=== PATIENT | female | born 1950 | race Caucasian/White ===

== ENCOUNTER 2021-10-07 08:02 | Outpatient (CLI) | payer MEDICARE, OTHER ==
[~2021-10-07] VITALS: Ht 180.3 cm; Wt 104.5 kg
[2021-10-07] MEDS ORDERED: BIOT10006 PO (08:50)
[2021-10-07] MEDS ORDERED: IRON1CAP PO (08:50)
[2021-10-07] MEDS ORDERED: ALBU0.63 IH (08:50)
[2021-10-07] MEDS ORDERED: OXC5T PO (08:50)
[2021-10-07] MEDS ORDERED: IPRA4AER IH (08:50)
[2021-10-07] MEDS ORDERED: ASPI-999 PO (08:50)
[2021-10-07] MEDS ORDERED: GABA300C PO (08:50)
[2021-10-07] MEDS ORDERED: ATOR20TA66 PO (08:50)
[2021-10-07] MEDS ORDERED: OMEP20CA18 PO (08:50)
[2021-10-07] MEDS ORDERED: TR1C15 TP (08:50)
[2021-10-07] MEDS ORDERED: LUTE20CA2 PO (08:50)
[2021-10-07] MEDS ORDERED: DOXY100C5 PO (08:50)
[2021-10-07] MEDS ORDERED: ALLO300T2 PO (08:50)
[2021-10-07] MEDS ORDERED: HYOS-6 PO (08:50)
[2021-10-07] MEDS ORDERED: MELO15TA39 PO (08:50)
[2021-10-07] MEDS ORDERED: CRAN250T2 PO (08:50)
[2021-10-07] MEDS ORDERED: CHOL500050 PO (08:50)
[2021-10-07] MEDS ORDERED: LEVO50CA4 PO (08:50)
[2021-10-07] MEDS ORDERED: AMIO100T4 PO (08:50)
[2021-10-07] MEDS ORDERED: ZOLP10TA PO (08:50)
[2021-10-07] MEDS ORDERED: [UNRECOGNIZED DRUG - CODE] PO (08:50)
[2021-10-07 09:21] VITALS: BP 122/75
== END 2021-10-07 10:20 | disposition home or self-care (01) ==
LOC: PREOP 08:02
PROVIDERS: ATTEND Otolaryngology Otolaryngology/Facial Plastic Surgery
DX: Z01.818 Encounter for other preprocedural examination (principal)

== ENCOUNTER 2021-10-15 05:54 | Day surgery (SDC) | payer MEDICARE, OTHER ==
[2021-10-15] VITALS (11 sets, daily range): BP systolic 125–157; BP diastolic 76–90
[~2021-10-15] VITALS: Ht 180 cm; Wt 104.5 kg
[~2021-10-15 05:54] MED LIST: ALBU0.63 IH; ALLO300T2 PO; AMIO100T4 PO; ASPI-999 PO; ATOR20TA66 PO; BIOT10006 PO; CHOL500050 PO; CRAN250T2 PO; DOXY100C5 PO; GABA300C PO; HYOS-6 PO; IPRA4AER IH; IRON1CAP PO; LEVO50CA4 PO; LUTE20CA2 PO; MELO15TA39 PO; OMEP20CA18 PO; OXC5T PO; TR1C15 TP; ZOLP10TA PO; [UNRECOGNIZED DRUG - CODE] PO
[2021-10-15] MEDS ORDERED: LACTATED RINGERS 1,000 ML IV PRN (06:00)
--- NOTE | 2021-10-15 06:53 | Progress Note-Pre Operative ---
Pre-Operative Progress Note Date of Available H&P: Oct 15, 2021 Date H&P Reviewed: Oct 15, 2021 Time H&P Reviewed: 06:30 History & Physical: H&P Reviewed, Patient Examed, No changes noted Changes from last HP none Pre-Operative Diagnosis: deviated nasal septum, Bialt hyper of Inf turbs HEATHER DALE MD Oct 15, 2021 06:53
[2021-10-15] MEDS ORDERED: LIDOCAINE/EPI 2% 1:200,00 (XYLOCAINE) 20 ML VIAL ONE (06:55)
[2021-10-15] MEDS ORDERED: MUPIROCIN 2% OINT 22 GM (BACTROBAN) TUBE ONE (06:55)
[2021-10-15] MEDS ORDERED: PHENYLEPHRINE 0.5% NASAL SPR (NEO-SYNEPHRINE) REG ONE (06:55)
[2021-10-15] MEDS ORDERED: COCAINE HCL 4% 2 ML SYR ONE (06:55)
--- NOTE | 2021-10-15 06:59 | Progress Note-Post Operative ---
Post-Operative Progess Note Surgeon (s)/Rubbish Collector (s) Surgeon HEATHER DALE MD Rubbish Collector n/a Pre-Operative Diagnosis deviated nasal septum, Bialt hyper of Inf turbs Post-Operative Diagnosis same Post-Op Procedure Note Date of Procedure: Oct 15, 2021 Name of Procedure Performed: Nasal Septoplasty, Bilateral Reduction of the INferior Turbinates Description & Findings Description and Findings: n/a Anesthesia Type get Estimated Blood Loss minimal Packing none. Specimen(s) collected/removed nasal septum HEATHER DALE MD Oct 15, 2021 06:58
[2021-10-15] MEDS ORDERED: PROMETHAZINE INJ 25 MG/ML (PHENERGAN) AMP IVP PRN (07:00)
[2021-10-15] MEDS ORDERED: HYDROcodone/APAP 5 MG/325 MG (LORTAB) TAB PO PRN (07:00)
[2021-10-15] MEDS ORDERED: D5 1/2 NS W/KCL 20 MEQ/L 1,000 ML IV SCH (07:00)
[2021-10-15] MEDS ORDERED: fentaNYL INJ 100 MCG/2 ML AMP ONE (07:23)
[2021-10-15] MEDS ORDERED: MIDAZOLAM 2 MG/2 ML (VERSED) VIAL ONE (07:23)
[2021-10-15] MEDS ORDERED: LIDOCAINE PF 2% 5 ML (XYLOCAINE) VIAL ONE (08:31)
[2021-10-15] MEDS ORDERED: proPOfol 200 MG/20 ML (DIPRIVAN) VIAL IV ONE (08:31)
[2021-10-15] MEDS ORDERED: ROCURONIUM 50 MG/5 ML (ZEMURON) VIAL IV ONE (08:31)
[2021-10-15] MEDS ORDERED: ONDANSETRON 4 MG/2 ML (SDV) Z0FRAN ONE (08:31)
[2021-10-15] MEDS ORDERED: SEVOFLURANE (ULTANE) 15 ML INHAL SOLN ONE (08:52)
[2021-10-15] MEDS ORDERED: ACHD5005 PO (09:26)
[2021-10-15] MEDS ORDERED: AMOX-355 PO (09:27)
--- NOTE | 2021-10-15 12:11 | Anesthesia-General Post-Op ---
General Patient Condition Mental Status/LOC: Same as Preop Cardiovascular: Satisfactory Nausea/Vomiting: Absent Respiratory: Satisfactory Pain: Controlled Complications: Absent Post Op Complications Complications None Follow Up Care/Instructions Patient Instructions None needed. Anesthesia/Patient Condition Patient Condition Patient is doing well, no complaints, stable vital signs, no apparent adverse anesthesia problems. No complications reported per nursing. KIRSTIN LOZADA CRNA Oct 15, 2021 12:11
== END 2021-10-15 10:48 | disposition home or self-care (01) ==
LOC: SDC 05:54
PROVIDERS: ATTEND Otolaryngology Otolaryngology/Facial Plastic Surgery
DX: J34.2 Deviated nasal septum (principal); J34.3 Hypertrophy of nasal turbinates; R09.81 Nasal congestion
CPT/HCPCS: 87081

== ENCOUNTER 2021-11-04 20:48 | Observation (INO) | payer MEDICARE, OTHER ==
[~2021-11-04] VITALS: Ht 182.8 cm; Wt 104.5 kg
[~2021-11-04 20:48] MED LIST changes: +ACHD5005 PO; +AMOX-355 PO
[2021-11-04] MEDS ORDERED: NS IV 1000 ML 1,000 ML IV STA (21:06)
[2021-11-04 21:17] LABS: BASOPHILS # (AUTO) 0.1 10^3/uL (0.0-0.1); BASOPHILS % (AUTO) 1 % (0-10); EOSINOPHILS # (AUTO) 0.4 10^3/uL (0.0-0.3); EOSINOPHILS % (AUTO) 4 % (0-10); HEMATOCRIT 32 % (35-52); HEMOGLOBIN 10.7 g/dL (11.5-16.0); LYMPHOCYTES # (AUTO) 2.7 10^3/uL (1.0-4.0); LYMPHOCYTES % (AUTO) 27 % (12-44); MEAN CORPUSCULAR HEMOGLOBIN 32 pg (25-34); MEAN CORPUSCULAR HGB CONC 33 g/dL (32-36); MEAN CORPUSCULAR VOLUME 95 fL (80-99); MEAN PLATELET VOLUME 9.6 fL (9.0-12.2); MONOCYTES # (AUTO) 0.6 10^3/uL (0.0-1.0); MONOCYTES % (AUTO) 7 % (0-12); NEUTROPHILS # (AUTO) 5.9 10^3/uL (1.8-7.8); NEUTROPHILS % (AUTO) 61 % (42-75); PLATELET COUNT 292 10^3/uL (130-400); WHITE BLOOD COUNT 9.7 10^3/uL (4.3-11.0)
--- NOTE | 2021-11-04 21:17 | Progress Note ---
Standard Progress Note Progress Notes/Assess & Plan Date Seen by a Provider: Nov 04, 2021 Time Seen by a Provider: 21:00 Progress/Assessment & Plan [id number] NOTE and HIstory and PHysical cc: REcurrent Epistaxis HPI: Patient had nasal surgery 3-4 weeks ago. Two days ago she began to have bleeding form the nose and mouth. Seen initially in [place] and it stopped. REcurred this am and was seen in the clinic. At that time no bleeding noted. Seh refused admission and went home. IT began to bleed again around 7pm. Seh has had presistent bleeding since. No otyehr bleeding tendencies. Doing well from surgery otheriwise. Not on any blood thinners. HGB prior to surgery was 12.5. Blood lpressure in [facility] ER elevated but initial BP in ER here was in normal range Exam: Nose-narrow nasal dorsum. She had active bleeding coming from the left side of hte nose both anteriorly and posteriorly OP-stream of blood in posterior phyarynx IMP: Recurrent Left Posterior Epistaxis Rec: 1 Evaluation in the OR with endoscopic repair recommended. Risks, benefits and possiblity of recurrence discussed. Last ate 3-4 hours ago. Had a salad at that time. Will proceed to the OR when crew and room available. Plan on obervation afterwards at [facility] overnight. CBC and an extra tube just in case for type and cross will be drawn. Final Diagnosis Left Posterior Epistaxis HEATHER DALE MD Nov 04, 2021 21:17
--- NOTE | 2021-11-04 21:18 | Progress Note-Pre Operative ---
Pre-Operative Progress Note Date of Available H&P: Nov 04, 2021 Date H&P Reviewed: Nov 04, 2021 Time H&P Reviewed: 21:00 History & Physical: H&P Reviewed, Patient Examed, No changes noted Changes from last HP none Pre-Operative Diagnosis: Left Posterior Epistaxis HEATHER DALE MD Nov 04, 2021 21:18
[2021-11-04] MEDS ORDERED: LIDOCAINE/EPI 2% 1:200,00 (XYLOCAINE) 20 ML VIAL ONE (21:31)
[2021-11-04] MEDS ORDERED: PHENYLEPHRINE 0.5% NASAL SPR (NEO-SYNEPHRINE) REG ONE (21:31)
[2021-11-04] MEDS ORDERED: MUPIROCIN 2% OINT 22 GM (BACTROBAN) TUBE ONE (21:31)
[2021-11-04] MEDS ORDERED: COCAINE HCL 4% 2 ML SYR ONE (21:31)
[2021-11-04] MEDS ORDERED: SEVOFLURANE (ULTANE) 15 ML INHAL SOLN ONE (21:49)
[2021-11-04] MEDS ORDERED: fentaNYL INJ 100 MCG/2 ML AMP ONE (21:49)
[2021-11-04] MEDS ORDERED: LIDOCAINE PF 2% 5 ML (XYLOCAINE) VIAL ONE (21:49)
[2021-11-04] MEDS ORDERED: SUCCINYLCHOLINE INJ 100 MG/5 ML SYR/VIAL ONE (21:49)
[2021-11-04] MEDS ORDERED: proPOfol 200 MG/20 ML (DIPRIVAN) VIAL IV ONE (21:49)
[2021-11-04] MEDS ORDERED: MIDAZOLAM 2 MG/2 ML (VERSED) VIAL ONE (22:00)
[2021-11-04] MEDS ORDERED: ONDANSETRON 4 MG/2 ML (SDV) Z0FRAN ONE (22:13)
[2021-11-04] MEDS ORDERED: LACTATED RINGERS 1,000 ML IV PRN (22:15)
[2021-11-04] MEDS ORDERED: BSS 15 ML ONE (22:25)
[2021-11-04 22:52] VITALS: BP 124/81
--- NOTE | 2021-11-04 22:56 | Progress Note-Post Operative ---
Post-Operative Progess Note Surgeon (s)/Cosmetic Manager (s) Surgeon HEATHER DALE MD Cosmetic Manager n/a Pre-Operative Diagnosis Left Posterior Epistaxis Post-Operative Diagnosis same Post-Op Procedure Note Date of Procedure: Nov 04, 2021 Name of Procedure Performed: Endoscopic Repair of Left Posterior Epistaxis Description & Findings Description and Findings: n/a Anesthesia Type get Estimated Blood Loss minimal Packing dissolvable nasal packingand a Suresh pack on the left side Specimen(s) collected/removed none HEATHER DALE MD Nov 04, 2021 22:56
[2021-11-04 23:00] VITALS: BP 153/82
[2021-11-04] MEDS ORDERED: PHENYLEPHRINE 0.5% NASAL SPR (NEO-SYNEPHRINE) REG PRN (23:00)
[2021-11-04] MEDS ORDERED: D5 1/2 NS W/KCL 20 MEQ/L 1,000 ML IV SCH (23:00)
[2021-11-04] MEDS ORDERED: HYDROcodone/APAP 5 MG/325 MG (LORTAB) TAB PO PRN (23:00)
[2021-11-04 23:10] VITALS: BP 147/89
[2021-11-04 23:20] VITALS: BP 144/80
[2021-11-04 23:30] VITALS: BP 139/59
[2021-11-04 23:40] VITALS: BP_SYST 132; BP_SYST 141; BP_DIAS 68; BP_DIAS 78
[2021-11-05 03:05] VITALS: BP 119/60
--- NOTE | 2021-11-05 06:51 | Progress Note ---
Standard Progress Note Progress Notes/Assess & Plan Date Seen by a Provider: Nov 05, 2021 Time Seen by a Provider: 06:30 Progress/Assessment & Plan [id number] NOTE and HIstory and PHysical cc: REcurrent Epistaxis HPI: Patient had nasal surgery 3-4 weeks ago. Two days ago she began to have bleeding form the nose and mouth. Seen initially in [place] and it stopped. REcurred this am and was seen in the clinic. At that time no bleeding noted. Seh refused admission and went home. IT began to bleed again around 7pm. Selaura has had presistent bleeding since. No otyehr bleeding tendencies. Doing well from surgery otheriwise. Not on any blood thinners. HGB prior to surgery was 12.5. Blood lpressure in [facility] ER elevated but initial BP in ER here was in normal range Exam: Nose-narrow nasal dorsum. She had active bleeding coming from the left side of hte nose both anteriorly and posteriorly OP-stream of blood in posterior phyarynx IMP: Recurrent Left Posterior Epistaxis Rec: 1 Evaluation in the OR with endoscopic repair recommended. Risks, benefits and possiblity of recurrence discussed. Last ate 3-4 hours ago. Had a salad at that time. Will proceed to the OR when crew and room available. Plan on obervation afterwards at [facility] overnight. CBC and an extra tube just in case for type and cross will be drawn. [id number]/05 600 doing well no bleeding post-op alice diet fluids contineu as she hasnt urinated post-op yet-she is dry will discharge around noon if doing well rtc-2 weeks she may remove the pack in the left side of the nose on monday at home keep nose moist iwth nasal saline spray call if further problems with bleeding Final Diagnosis Left Posterior Epistaxis HEATHER DALE MD Nov 05, 2021 06:51
[2021-11-05 08:00] VITALS: BP 125/65
[2021-11-05 11:20] VITALS: BP 125/65
--- NOTE | 2021-11-05 14:53 | Anesthesia-General Post-Op ---
General Patient Condition Mental Status/LOC: Same as Preop Cardiovascular: Satisfactory Nausea/Vomiting: Absent Respiratory: Satisfactory Pain: Controlled Complications: Absent Post Op Complications Complications None Follow Up Care/Instructions Patient Instructions None needed. Anesthesia/Patient Condition Patient Condition Patient was already discharged to home this morning during postop rounds. She was doing well, no complaints, stable vital signs, no apparent adverse anesthesia problems prior to her discharge. No complications reported per nursing. REZA HALL DO Nov 05, 2021 14:53
== END 2021-11-05 06:52 | disposition home or self-care (01) ==
LOC: ER 20:48 → EDUNIT# 20:48 → ER 20:49 → SDC 21:22 → 4TH 23:40
PROVIDERS: ADMIT Otolaryngology Otolaryngology/Facial Plastic Surgery; ATTEND Otolaryngology Otolaryngology/Facial Plastic Surgery
DX: R04.0 Epistaxis (principal)
CPT/HCPCS: 31238; 85025; 86850; 86900; 86901; 99285; G0378; 36415